=== PATIENT | female | born 1980 | race Caucasian/White ===

== ENCOUNTER 2018-10-20 08:37 | Emergency (ER) | payer OTHER ==
[2018-10-20] MEDS ORDERED: IBUPROFEN 800 MG TABLET PO STA (09:00)
--- NOTE | 2018-10-20 09:02 | ED Physician Documentation ---
PD HPI LOWER EXT INJURY - Stated complaint Stated Complaint: RT ANKLE INJ - Chief complaint Chief Complaint: Ext Problem - History obtained from History obtained from: Patient - History of Present Illness PD HPI LOW EXT INJURY LOCATION: Right, Ankle Type of injury: Twist Where injury occurred: Home Timing - onset: How many hours ago (1) Timing - duration: Hours (1) Timing - details: Abrupt onset Pain level max: 8 Pain level now: 6 Improved by: Rest, Ice, Immobilization Worsened by: Moving, Palpating Associated symptoms: Swelling. 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 surgery), Tubal ligation, Other HEENT: Tonsil/Adenoidectomy - Present Medications Home Medications: Ambulatory Orders Medication Instructions Recorded Confirmed Cholecalciferol (Vitamin D3) 1 tab PO DAILY 05/31/17 10/20/18 [Vitamin D3] Ibuprofen [Motrin] 800 mg PO Q8H PRN #30 tablet 10/20/18 - Allergies Allergies/Adverse Reactions: Allergies Allergy/AdvReac Type Severity Reaction Status Date / Time Penicillins Allergy Rash Verified 10/20/18 08:50 - Social History Does the pt smoke?: Yes Smoking Status: Former smoker Does the pt drink ETOH?: Yes Does the pt have substance abuse?: No - Immunizations Immunizations are current?: Yes - POLST Patient has POLST: No PD ED PE NORMAL - Vitals Vital signs reviewed: Yes - General General: Alert and oriented X 3, No acute distress - Derm Derm: Warm and dry - Extremities Extremities: Other (R ankle - Tender to palpation over the lateral malleolus. Mild swelling. Neurovascularly intact. No tenderness over the remainder of the foot, ankle or lower leg.) - Neuro Neuro: Alert and oriented X 3 - Psych Psych: Normal mood, Normal affect Results - Vitals Vitals: Vital Signs - 24 hr 10/20/18 08:43 Temperature 36.4 C L Heart Rate 93 Respiratory 18 Rate Blood Pressure 143/89 H O2 Saturation 100 Oxygen O2 Source Room air - Rads (name of study) R ankle xray Radiology: Prelim report reviewed, EMP read contemporaneously, See rad report (No acute osseous abnormality of the ankle. A small tibiotalar joint effusion is present. ) PD MEDICAL DECISION MAKING - ED course Complexity details: reviewed results, re-evaluated patient, considered differential, d/w patient ED course: 38-year-old female presents the emergency department with a right ankle sprain. No fractures or dislocation on x-ray. Placed in an Aircast and on crutches. Will follow up with PCP for further care. Patient counseled regarding signs and symptoms for which I believe and urgent re-evaluation would be necessary. Patient with good understanding of and agreement to plan and is comfortable going home at this time This document was made in part using voice recognition software. While efforts are made to proofread this document, sound alike and grammatical errors may occur. Neurovascularly intact Departure - Departure Disposition: 01 Home, Self Care Clinical Impression: Right ankle sprain Qualifiers: Encounter type: initial encounter Involved ligament of ankle: unspecified ligament Qualified Code(s): S93.401A - Sprain of unspecified ligament of right ankle, initial encounter Condition: Good Instructions: ED Sprain Ankle W X Ray Follow-Up: your,doctor in 1week [Other] Prescriptions: Ibuprofen [Motrin] 800 mg PO Q8H PRN #30 tablet PRN Reason: PAIN &/OR FEVER Comments: There are no fractures on your today. Use the crutches as needed to help you walk. This should improve over the next few days. If you are still having pain in 1 week, you should follow-up with your doctor for repeat evaluation Forms: Activity restrictions
--- NOTE | 2018-10-20 09:55 | XRAY Report ---
Reason: injury Procedure Date: 10/20/2018 Accession Number: [id number] / [id number] Procedure: XR - Ankle 3 View RT CPT Code: FULL RESULT: EXAM: RIGHT ANKLE RADIOGRAPHY EXAM DATE: 10/20/2018 09:41 AM. CLINICAL HISTORY: Twisted right ankle today on stairs. Pain anterior and lateral malleolus. COMPARISON: None. TECHNIQUE: 3 views. FINDINGS: Bones: Normal. No fractures or bone lesions. There is a small calcaneal plantar spur. Joints: There is a small tibiotalar joint effusion. No subluxations. The ankle mortise is normally aligned. Soft Tissues: Unremarkable. No focal soft tissue swelling appreciated. IMPRESSION: 1. No acute osseous abnormality of the ankle. 2. A small tibiotalar joint effusion is present. RADIA
[2018-10-20 10:45] VITALS: BP 138/88
== END 2018-10-20 10:44 | disposition home or self-care (01) ==
LOC: ED 08:37
DX: Z87.891 Personal history of nicotine dependence (principal); S93.401A Sprain of unspecified ligament of right ankle, initial encounter; X50.1XXA Overexertion from prolonged static or awkward postures, initial encounter
CPT/HCPCS: 73610; 99283; A9270

== ENCOUNTER 2018-11-09 19:17 | Emergency (ER) | payer OTHER ==
[2018-11-09 19:26] VITALS: BP 151/82
[2018-11-09] MEDS ORDERED: TETANUS/DIPHTHERIA/PERTUSSIS 0.5 ML SYRINGE IM ONE (20:06)
[2018-11-09] MEDS ORDERED: AMOX/CLAV 875 MG/125 MG TABLET PO STA (20:06)
--- NOTE | 2018-11-09 20:10 | ED Physician Documentation ---
PD HPI UPPER EXT INJURY - Stated complaint Stated Complaint: CAT BITE LF RING FINGER - Chief complaint Chief Complaint: Laceration - History obtained from History obtained from: Patient - History of Present Illness Location: Hand Type of injury: Other (The patient was bit by her cat yesterday while attempting to give a B12 injection) Where injury occurred: Home Timing - onset: Yesterday Timing - details: Abrupt onset Severity Comments: moderate Improved by: Nothing Worsened by: Moving Associated symptoms: No: Weakness, Numbness, Tingling, Swelling Contributing factors: Prior ortho surgery Similar symptoms before: Has not had sx before Recently seen: Not recently seen Review of Systems Constitutional: denies: Fever, Chills Eyes: denies: Discharge Cardiac: denies: Chest pain / pressure Respiratory: denies: Dyspnea GI: denies: Abdominal Pain Skin: reports: Bite / sting Musculoskeletal: reports: Extremity pain Neurologic: denies: Generalized weakness Immunocompromised: denies: Chemotherapy PD PAST MEDICAL HISTORY - Past Medical History Past Medical History: No Cardiovascular: None Respiratory: None Neuro: None Endocrine/Autoimmune: None GI: None 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 : None HEENT: None Psych: None Musculoskeletal: None Derm: None - Past Surgical History 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 Surgical 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: LEEP (Cervical surgery), Tubal ligation, Other HEENT: Tonsil/Adenoidectomy - Present Medications Home Medications: Ambulatory Orders Medication Instructions Recorded Confirmed Cholecalciferol (Vitamin D3) 1 tab PO DAILY 05/31/17 10/20/18 [Vitamin D3] Ibuprofen [Motrin] 800 mg PO Q8H PRN #30 tablet 10/20/18 Amox/Clav 875/125 [Augmentin] 1 each PO Q12H #20 tablet 11/09/18 - Allergies Allergies/Adverse Reactions: Allergies Allergy/AdvReac Type Severity Reaction Status Date / Time Penicillins Allergy Rash Verified 10/20/18 08:50 - Social History Does the pt smoke?: No Smoking Status: Never smoker Does the pt drink ETOH?: Yes ETOH Use: Wine Does the pt have substance abuse?: No - Immunizations Immunizations are current?: No Immunizations: TDAP >10years/unknown - POLST Patient has POLST: No PD ED PE NORMAL - General General: Alert and oriented X 3, No acute distress - HEENT HEENT: Atraumatic, PERRL, EOMI, Ears normal - Derm Derm: Other (The patient has 2 bite hurtado on the volar aspect of her finger, there is some surrounding erythematous changes. The patient has no tenderness along the flexor tendon, the digit is only mildly Swollen, the patient has full active range of motion and has no pain on passive range of motion of the digit. There is no active drainage or erythema tracking into the volar palm) - Extremities Extremities: No deformity - Neuro Neuro: Alert and oriented X 3, Normal speech - Psych Psych: Normal affect Results - Vitals Vitals: Vital Signs - 24 hr 11/09/18 19:22 Temperature 36.5 C Heart Rate 69 Respiratory 16 Rate Blood Pressure 151/82 H O2 Saturation 100 Oxygen O2 Source Room air PD MEDICAL DECISION MAKING - ED course ED course: The patient has an acute cat bite to her hand, there is some early signs of infection but currently no evidence of flexor tenosynovitis, the patient appears appropriate for an outpatient course of antibiotics. I discussed with her warning signs for a more serious hand infection and advised that she should return to the emergency department immediately for any worsening or any concerns The patient will otherwise follow-up with primary care The patient was told that she had a reaction to penicillin years ago but has not actually experienced anything that she can remember. According to her it may have been a rash. There is no reports of anaphylaxis. Since this may not have been related to the actual penicillin itself I recommended using Augmentin since the most appropriate antibiotic. The patient understands and agrees to the plan Departure - Departure Disposition: 01 Home, Self Care Clinical Impression: Cat bite of finger Qualifiers: Encounter type: initial encounter Qualified Code(s): S61.259A - Open bite of unspecified finger without damage to nail, initial encounter; W55.01XA - Bitten by cat, initial encounter Condition: Good Instructions: ED Bite Cat Prescriptions: Amox/Clav 875/125 [Augmentin] 1 each PO Q12H #20 tablet Comments: Please follow-up with your primary care physician in 3 days for recheck of your wound Please return to the emergency department immediately for any worsening or any concerns
== END 2018-11-09 21:09 | disposition home or self-care (01) ==
LOC: ED 19:17
DX: S61.255A Open bite of left ring finger without damage to nail, initial encounter (principal); L08.9 Local infection of the skin and subcutaneous tissue, unspecified; W55.01XA Bitten by cat, initial encounter; Y93.K9 Activity, other involving animal care; Y92.009 Unspecified place in unspecified non-institutional (private) residence as the place of occurrence of the external cause; Z23 Encounter for immunization; Z88.0 Allergy status to penicillin
CPT/HCPCS: 90471; 90715; 99281; 99283; A9270

== ENCOUNTER 2020-08-09 08:00 | Emergency (ER) | payer OTHER ==
[2020-08-09 08:06] VITALS: BP 152/87
[2020-08-09] MEDS ORDERED: PROPARACAINE 0.5% OPHTH DROPS 15 ML EACHEYE STA (08:09)
[2020-08-09] MEDS ORDERED: ERYTHROMYCIN OPHTH OINT 1 GM TUBE RIGHTEYE STA (08:21)
--- NOTE | 2020-08-09 08:23 | ED Physician Documentation ---
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 She presents with eye pain that started this morning with light sensitivity drainage and mild blurriness of the right eye only. She does not wear contacts. Review of Systems Constitutional: denies: Fever, Chills Eyes: reports: Decreased vision, Photophobia, Irritation. 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 08/09/20 Ophthalmic Ointment] - Allergies Allergies/Adverse Reactions: Allergies Allergy/AdvReac Type Severity Reaction Status Date / Time Penicillins Allergy Rash Verified 10/20/18 08:50 - Social History Does the pt smoke?: No Smoking Status: Never smoker Does the pt drink ETOH?: Yes Does the pt have substance abuse?: No - Immunizations Immunizations are current?: No Immunizations: TDAP >10years/unknown - POLST Patient has POLST: No PD ED PE NORMAL - Vitals Vital signs reviewed: Yes - General General: Alert and oriented X 3, No acute distress - HEENT HEENT: PERRL, EOMI, Other (Mild conjunctivitis of the right eye, complete resolution of pain after the administration of proparacaine. No cell or flare in the anterior chamber. Bebeto-Pen on the right is 26.) - Neck Neck: Supple, no meningeal sign, No bony TTP - Neuro Neuro: Alert and oriented X 3, Normal speech Results - Vitals Vitals: Vital Signs - 24 hr 08/09/ 08:04 Temperature 36.8 C Heart Rate 72 Respiratory 18 Rate Blood Pressure 152/87 H O2 Saturation 100 Oxygen O2 Source Room air PD MEDICAL DECISION MAKING - ED course ED course: No evidence of uveitis on slit-lamp exam at this juncture, mildly elevated eye pressures but probably not enough to cause acute symptoms. Otherwise seems most consistent with mild conjunctivitis. No pain with light in the contralateral eye. Complete resolution with proparacaine. Departure - Departure Disposition: Home, Self Care Clinical Impression: Conjunctivitis Qualifiers: Conjunctivitis type: acute Acute conjunctivitis type: unspecified Laterality: right Qualified Code(s): H10.31 - Unspecified acute conjunctivitis, right eye Condition: Good Record reviewed to determine appropriate education?: Yes Instructions: ED Conjunctivitis Nonspecific Follow-Up: Lalo Manning MD [Provider Admit Priv/Credential] - Prescriptions: Erythromycin Base [Erythromycin Ophthalmic Ointment] 1 appful OP 5XD 7 Days #1 oint...g. Comments: There is no evidence of uveitis at this juncture, you do have mildly elevated eye pressures with the right being 26. I suspect this is not related to your current symptoms but does necessitate follow-up with an software reverse engineer or tennis net maker for recheck. You can call the software reverse engineer on this form for an appointment, return if worsening.
== END 2020-08-09 08:37 | disposition home or self-care (01) ==
LOC: ED 08:00
DX: H10.31 Unspecified acute conjunctivitis, right eye (principal)
CPT/HCPCS: 99282; 99283; J3490

== ENCOUNTER 2023-10-06 12:28 | Outpatient (CLI) | payer OTHER ==
[2023-10-06 12:54] LABS: BASOPHILS # (AUTO) 0.1 10^3/uL (0.0-0.1); BASOPHILS % (AUTO) 0.7 %; EOSINOPHILS # (AUTO) 0.1 10^3/uL (0.0-0.7); EOSINOPHILS % (AUTO) 0.8 %; HCT - HEMATOCRIT 42.3 % (37.0-47.0); HGB - HEMOGLOBIN 13.6 g/dL (12.0-16.0); LYMPHOCYTES # (AUTO) 2.5 10^3/uL (1.5-3.5); LYMPHOCYTES % (AUTO) 34.6 %; MEAN CORPUSCULAR HEMOGLOBIN 30.2 pg (27.0-31.0); MEAN CORPUSCULAR HGB CONC 32.2 g/dL (32.0-36.0); MEAN CORPUSCULAR VOLUME 93.8 fL (81.0-99.0); MONOCYTES # (AUTO) 0.7 10^3/uL (0.0-1.0); MONOCYTES % (AUTO) 9.7 %; NEUTROPHILS % (AUTO) 54.1 %; PLT - PLATELET COUNT 262 10^3/uL (130-450); RED BLOOD COUNT 4.51 10^6/uL (4.20-5.40); RED CELL DISTRIBUTION WIDTH 13.3 % (12.0-15.0); WHITE BLOOD COUNT 7.3 x10^3/uL (4.8-10.8)
== END 2023-10-06 12:29 | disposition home or self-care (01) ==
LOC: LAB 12:28
PROVIDERS: ATTEND Obstetrics & Gynecology
DX: Z01.812 Encounter for preprocedural laboratory examination (principal); N93.9 Abnormal uterine and vaginal bleeding, unspecified
CPT/HCPCS: 36415; 85025; 86850; 86900; 86901

== ENCOUNTER 2023-10-07 07:27 | Day surgery (SDC) | payer OTHER ==
[~2023-10-07 07:27] MED LIST: ACETAMINOPHEN 1,000 MG/100 ML 1,000 MG/100 ML BAG IV ONE; CELECOXIB 100 MG CAPSULE PO ONE; GABAPENTIN 400 MG CAPSULE ONE; ceFAZolin 2 GM VIAL ONE
[2023-10-07] MEDS ORDERED: LACTATED RINGERS 1,000 ML IV ONE ×2 (07:30→11:37)
[2023-10-07 07:44] LABS: HCG UR QUAL NEGATIVE
[2023-10-07] MEDS ORDERED: PROPOFOL 200 MG/20 ML VIAL IVP ONE (08:11)
[2023-10-07] MEDS ORDERED: fentaNYL 100 MCG/2 ML VIAL ONE ×4 (08:11→11:39)
[2023-10-07] MEDS ORDERED: ROCURONIUM 50 MG/5 ML VIAL ONE (08:11)
[2023-10-07] MEDS ORDERED: MIDAZOLAM 2 MG/2 ML VIAL ONE (08:11)
[2023-10-07] MEDS ORDERED: VASOPRESSIN 20 UNIT/ML VIAL ONE (08:15)
[2023-10-07] MEDS ORDERED: BUPIVACAINE 0.5%-EPI 1:200000 PF 30 ML VIAL ONE (08:15)
[2023-10-07] MEDS ORDERED: ESTROGENS, CONJUGATED CREAM 30 GM TUBE ONE (08:15)
[2023-10-07] MEDS ORDERED: HYDROmorphone 0.5 MG/0.5 ML SYRINGE IVP PRN (08:25)
[2023-10-07] MEDS ORDERED: NALOXONE 0.4 MG/ML VIAL IVP PRN (08:25)
[2023-10-07] MEDS ORDERED: MORPHINE 2 MG/ML CARPUJECT IVP PRN (08:25)
[2023-10-07] MEDS ORDERED: ATROPINE ABBOJECT 1 MG/10 ML SYRINGE IVP PRN (08:25)
[2023-10-07] MEDS ORDERED: ePHEDrine 50 MG/ML VIAL IVP PRN (08:25)
[2023-10-07] MEDS ORDERED: ONDANSETRON 4 MG/2 ML VIAL IVP PRN (08:25)
[2023-10-07] MEDS ORDERED: METOCLOPRAMIDE 10 MG/2 ML VIAL IVP PRN (08:25)
--- NOTE | 2023-10-07 08:25 | ANESTHESIA ---
Pre-Anesthesia VS, & Labs - Diagnosis abnormal uterine bleeding - Procedure hysterectomy Vital Signs: Temp Pulse Resp BP Pulse Ox O2 Flow Rate 36.5 C 61 16 148/101 H 98 10/07/23 07:36 10/07/23 07:36 10/07/23 07:36 10/07/23 07:36 10/07/23 07:36 Height: 5 ft 10 in Weight (kg): 120.6 kg Body Mass Index: 38.1 BMI Classification: Obese - NPO >8 hours - Is Patient ?: No Home Medications and Allergies Home Medications: Ambulatory Orders Metformin HCl [Metformin ER Osmotic] 1,000 mg PO DAILY 10/01/23 Metformin HCl [Metformin ER Osmotic] 1,000 mg PO DAILY 10/01/23 Allergies/Adverse Reactions: Allergies Allergy/AdvReac Type Severity Reaction Status Date / Time Penicillins Allergy Rash Verified 10/20/18 08:50 Anes History & Medical History - Anesthetic History Anesthesia Complications: reports: No previous complications Family history of Anesthesia Complications: Denies Family history of Malignant Hyperthermia: Denies - Medical History Cardiovascular: reports: Hypertension Pulmonary: reports: None Gastrointestinal: reports: None Urinary: reports: None Neuro: reports: None Musculoskeletal: reports: None Endocrine/Autoimmune: reports: None Blood Disorders: reports: None Skin: reports: None Smoking Status: Never smoker - Surgical History Eyes Ears Nose Throat (EENT): reports: Tonsil/Adenoidectomy Gynecologic: reports: Dilation and currettage, Tubal ligation, LEEP (Cervical surgery), Other Exam General: Alert, Oriented x3, Cooperative Dental: WNL Mouth Openin Fingerbreadth Neck Mobility: Normal Mallampati classification: II Thyromental Distance: 4-6 cm Respiratory: Lungs clear Cardiovascular: Regular rate Plan Anesthesia Type: General Consent for Procedure(s) Verified and Reviewed: Yes Code Status: Attempt Resuscitation ASA classification: 2-Mild systemic disease Is this case an emergency?: No
[2023-10-07] MEDS ORDERED: MANNITOL 20% 500 ML ONE (08:32)
[2023-10-07] MEDS ORDERED: METHYLENE BLUE 0.5% 50 MG/10 ML AMPULE ONE (08:32)
[2023-10-07] MEDS ORDERED: LACTATED RINGERS 1,000 ML IV SCH (09:00)
[2023-10-07] MEDS ORDERED: DEXAMETHASONE 4 MG/ML VIAL ONE (09:05)
[2023-10-07] MEDS ORDERED: VASOPRESSIN 20 UNIT/ML VIAL IVP ONE (09:15)
[2023-10-07] MEDS ORDERED: METHYLENE BLUE 0.5% 50 MG/10 ML AMPULE IR ONE (09:16)
[2023-10-07] MEDS ORDERED: HYDROmorphone 1 MG/ML CARPUJECT ONE (09:28)
[2023-10-07] MEDS ORDERED: MANNITOL 20% 500 ML BAG IR ONE ×2 (11:00)
[2023-10-07] MEDS ORDERED: LABETALOL 5 MG/1 ML 20 ML MDV ONE (11:02)
[2023-10-07] MEDS ORDERED: ONDANSETRON 4 MG/2 ML VIAL ONE (11:02)
[2023-10-07] MEDS ORDERED: KETOROLAC 30 MG/ML VIAL ONE (11:13)
[2023-10-07] MEDS ORDERED: NEOSTIGMINE 1 MG/1 ML 10 ML MDV ONE (11:18)
[2023-10-07] MEDS ORDERED: GLYCOPYRROLATE 1 MG/5 ML VIAL ONE (11:18)
[2023-10-07] MEDS ORDERED: SIMETHICONE CHEW 80 MG TABLET PO PRN (11:26)
[2023-10-07] MEDS ORDERED: HYDROmorphone 1 MG/ML CARPUJECT IVP PRN (11:26)
[2023-10-07] MEDS ORDERED: oxyCODONE 5 MG TABLET PO PRN (11:26)
[2023-10-07] MEDS ORDERED: CALCIUM CARBONATE CHEW 500 MG TABLET PO PRN (11:26)
[2023-10-07] MEDS ORDERED: SCOPOLAMINE PATCH TOP PRN (11:26)
[2023-10-07] MEDS ORDERED: ONDANSETRON ODT 4 MG TABLET TL PRN (11:26)
--- NOTE | 2023-10-07 11:26 | OPERATIVE REPORT ---
Operative Report - General Procedure Date: 10/07/23 Planned Procedure: Total vaginal hysterectomy, possible laparoscopic assisted vaginal hysterectomy, cystoscopy Pre-Op Diagnosis: Abnormal uterine bleeding Procedure Performed: Total vaginal hysterectomy, cystoscopy Post Op Diagnosis: Abnormal uterine bleeding - Procedure Note Primary Surgeon: Lux Yan MD Secondary Surgeon: Elizabeth Gibson MD Anesthesia Provider: Jeni Diallo CRNA Anesthesia Technique: General ET tube Pathology: Uterus and cervix IV Fluids (mL): 2,100 Estimated Blood Loss (mL): 710 Urine Output (mL): 450 Findings: Normal-appearing uterus. Cervix with scar, possibly from previous cervical procedure. Normal-appearing ovaries. Complications: None - Other Other Information/Narrative: Prior to the procedure, patient was counseled the risk, benefits, alternatives to this procedure as per H&P. She consented to continue with planned total vaginal hysterectomy, possible laparoscopic assisted hysterectomy, cystoscopy. Patient was taken to the operating room where endotracheal anesthesia was found to be adequate. She was prepped using betadine vaginally and draped in a dorsal lithotomy position using great white stirrups. A time out was performed and prophylactic antibiotics were given prior to incision. The bladder was filled with methylene blue. An exam under anesthesia was performed and was consistent with her preoperative evaluation. A weighted speculum was placed into the vagina and the cervix was grasped with a single-toothed tenaculum. Dilute vasopressin was injected in the cervix the cervix was circumferentially inscribed using bovie cautery. This allowed dissection entry into the posterior cul-de-sac. The weighted speculum was traded for a Minot speculum to better protect the rectum. The uterosacral ligaments were then identified, clamped and suture ligated using 0 vicryl. The cardinal ligaments were then identified, clamped, cut, and suture ligated using 0 vicryl. The anterior cul-de-sac was then entered sharply. A demar retractor was placed to protect the bladder. The uterine vessels were clamped and suture ligated. The utero-ovarian vessels were clamped and doubly ligated using 0 vicryl bilaterally. The uterus was then removed and passed off. The vaginal cuff was closed with a running suture of the right uteralsacral ligament to the right with an 0- vicryl, incorporating both uteralsacral ligaments into the vaginal cuff. The vaginal cuff was then closed in an anterior to posterior direction. The vaginal cuff was hemostatic. A cystoscopy was performed showing good ureteral jets from bilateral ureteral orifices. The patient was then cleaned and drained and legs brought down out of dorsal lithotomy position simultaneously. Sponge, lap, and needle counts were reported correct by the nursing staff following the procedure. I appreciate the assistance of Dr. Gibson during this procedure, and the assistance in retraction, visualization, dissection, and overall assistance during the case were instrumental to the patient's wellbeing.
[2023-10-07] MEDS: fentaNYL 100 MCG/2 ML VIAL IVP PRN ×2 (11:43→12:06)
--- NOTE | 2023-10-07 12:07 | ANESTHESIA POST OP EVALUATION ---
Anesthesia Post Eval - Post Anesthesia Eval Vitals: Last Vital Signs Temp 36.3 C L 10/07/23 11:55 Pulse 50 L 10/07/23 11:55 Resp 12 10/07/23 11:55 BP 132/66 H 10/07/23 11:55 Pulse Ox 100 10/07/23 11:55 O2 Flow Rate CV Function Including HR & BP: Stable Pain Control: Satisfactory Nausea & Vomiting: Negative Mental Status: Baseline Respiratory Status: Airway Patent Hydration Status: Satisfactory Anesthesia Complications: None
[2023-10-07] MEDS: LACTATED RINGERS 1,000 ML IV SCH ×2 (14:15→20:56)
[2023-10-07] MEDS: ACETAMINOPHEN 500 MG TABLET PO SCH (15:32)
[2023-10-07] MEDS: KETOROLAC 30 MG/ML VIAL IVP SCH (18:21)
[2023-10-07] MEDS: DOCUSATE SODIUM 100 MG CAPSULE PO SCH (20:53)
[2023-10-07] MEDS ORDERED: ENOXAPARIN 40 MG/0.4 ML SYRINGE SUBQ SCH (21:00)
[2023-10-08] MEDS: ACETAMINOPHEN 500 MG TABLET PO SCH ×2 (00:21→08:52)
[2023-10-08] MEDS: KETOROLAC 30 MG/ML VIAL IVP SCH ×2 (00:21→06:16)
[2023-10-08] MEDS: LACTATED RINGERS 1,000 ML IV SCH (02:10)
[2023-10-08 05:43] LABS: BASOPHILS % (AUTO) 0.2 %; HCT - HEMATOCRIT 33.5 % (37.0-47.0); HGB - HEMOGLOBIN 10.5 g/dL (12.0-16.0); LYMPHOCYTES # (AUTO) 2.5 10^3/uL (1.5-3.5); LYMPHOCYTES % (AUTO) 22.2 %; MEAN CORPUSCULAR HEMOGLOBIN 29.7 pg (27.0-31.0); MEAN CORPUSCULAR HGB CONC 31.3 g/dL (32.0-36.0); MEAN CORPUSCULAR VOLUME 94.6 fL (81.0-99.0); MEAN PLATELET VOLUME 11.1 fL (7.9-10.8); MONOCYTES % (AUTO) 8.7 %; NEUTROPHILS # (AUTO) 7.6 10^3/uL (1.5-6.6); NEUTROPHILS % (AUTO) 68.6 %; PLT - PLATELET COUNT 215 10^3/uL (130-450); RED BLOOD COUNT 3.54 10^6/uL (4.20-5.40); RED CELL DISTRIBUTION WIDTH 13.6 % (12.0-15.0); WHITE BLOOD COUNT 11.1 x10^3/uL (4.8-10.8)
[2023-10-08 07:54] VITALS: BP 119/66; O2SAT 96
--- NOTE | 2023-10-08 08:26 | DISCHARGE SUMMARY ---
Discharge Summary Admit Date: 10/07/23 Discharge Date: 10/08/23 Discharging Provider: Lux Yan MD Code Status: Attempt Resuscitation Condition at Discharge: Stable Discharge Disposition: 01 Home, Self Care - DIAGNOSES Admission Diagnoses: Abnormal uterine bleeding Discharge Diagnoses with Status of Each Condition: Abnormal uterine bleeding Status post total vaginal hysterectomy, cystoscopy - [facility] History of Present Illness: Pain is well controlled. Ambulating without difficulty. No calf pain or tende rness. No shortness of breath or chest pain. Voiding without difficulty. Overnight events: No acute events overnight Physical exam: Constitutional: alert, oriented, no acute distress Cardiovascular: Regular rate and rhythm. No murmurs, rubs, gallops. Respiratory: No respiratory distress. Clear to auscultation bilaterally. Abdomen: Incision clean, dry, intact. Appropriate tenderness postoperative. Extremities: No swelling or tenderness. No cords. Distal pulses intact. Psych: affect and mood appropriate, normal interaction, good eye contact. - HOSPITAL COURSE Hospital Course: Patient was admitted for planned total vaginal hysterectomy and cystoscopy. She underwent an uncomplicated surgery was kept overnight when the Mata was removed. She was able to void spontaneously without issue. She was discharged on postoperative day 1. - ALLERGIES Allergies/Adverse Reactions: Allergies Allergy/AdvReac Type Severity Reaction Status Date / Time Penicillins Allergy Rash Verified 10/20/18 08:50 - MEDICATIONS Home Medications: Ambulatory Orders Medication Instructions Recorded Confirmed Metformin HCl [Metformin ER 1,000 mg PO DAILY 10/01/23 10/07/23 Osmotic] - LABS Result Diagrams: 10/08/23 05:37 - FOLLOW UP Follow Up: With Lux Yan MD at [facility] in 1 to 2 weeks. - TIME SPENT Time Spent in Discharge (Minutes): 20
[2023-10-08] MEDS: DOCUSATE SODIUM 100 MG CAPSULE PO SCH (09:07)
[2023-10-08] MEDS ORDERED: IBUPROFEN 600 MG TABLET PO SCH (18:00)
== END 2023-10-08 11:22 | disposition home or self-care (01) ==
LOC: SDS 07:27 → FBP 10:49 → SDS 10-08 11:22
PROVIDERS: ATTEND Obstetrics & Gynecology
PROC: 0UT97ZZ Resection of Uterus, Via Natural or Artificial Opening (ICD-10-PCS; principal; 2023-10-07 08:30)
DX: N93.9 Abnormal uterine and vaginal bleeding, unspecified (principal); E66.9 Obesity, unspecified; Z68.38 Body mass index [BMI] 38.0-38.9, adult; I10 Essential (primary) hypertension; Z87.891 Personal history of nicotine dependence
CPT/HCPCS: 36415; 58260; 81025; 85025; A9270; J0131; J1170; J1650; J3490; J7120; Q0162

== ENCOUNTER 2023-11-11 11:44 | Outpatient (CLI) | payer OTHER ==
[2023-11-11 11:57] LABS: BILIRUBIN,URINE NEGATIVE (NEGATIVE); GLUCOSE, URINE (UA) NEGATIVE (NEGATIVE); KETONES,URINE (UA) NEGATIVE (NEGATIVE); LEUKOCYTE ESTERASE, URINE TRACE (NEGATIVE); NITRITE,URINE NEGATIVE (NEGATIVE); OCCULT BLOOD,URINE NEGATIVE (NEGATIVE); PROTEIN,URINE NEGATIVE (NEGATIVE); UROBILINOGEN,URINE 0.2 (NORMAL) E.U./dL (NORMAL)
[2023-11-11 11:59] LABS: BASOPHILS # (AUTO) 0.1 10^3/uL (0.0-0.1); BASOPHILS % (AUTO) 0.7 %; EOSINOPHILS # (AUTO) 0.1 10^3/uL (0.0-0.7); EOSINOPHILS % (AUTO) 0.8 %; HCT - HEMATOCRIT 41.6 % (37.0-47.0); LYMPHOCYTES # (AUTO) 2.1 10^3/uL (1.5-3.5); LYMPHOCYTES % (AUTO) 28.6 %; MEAN CORPUSCULAR HEMOGLOBIN 29.1 pg (27.0-31.0); MEAN CORPUSCULAR HGB CONC 31.3 g/dL (32.0-36.0); MEAN CORPUSCULAR VOLUME 93.3 fL (81.0-99.0); MEAN PLATELET VOLUME 10.9 fL (7.9-10.8); MONOCYTES # (AUTO) 0.6 10^3/uL (0.0-1.0); MONOCYTES % (AUTO) 8.6 %; NEUTROPHILS # (AUTO) 4.5 10^3/uL (1.5-6.6); NEUTROPHILS % (AUTO) 61.2 %; PLT - PLATELET COUNT 270 10^3/uL (130-450); RED BLOOD COUNT 4.46 10^6/uL (4.20-5.40); RED CELL DISTRIBUTION WIDTH 13.4 % (12.0-15.0); WHITE BLOOD COUNT 7.4 x10^3/uL (4.8-10.8)
[2023-11-11 12:13] LABS: BACTERIA,URINE Rare /HPF (None Seen); CLARITY,URINE CLEAR (CLEAR); RBC,URINE None Seen /HPF (0-5); SQUAMOUS EPITHELIAL CELL,UR FEW Squamous (<= Few); WBC,URINE 0-3 /HPF (0-5)
== END 2023-11-11 11:45 | disposition home or self-care (01) ==
LOC: LAB 11:44
PROVIDERS: ATTEND Obstetrics & Gynecology
DX: G89.18 Other acute postprocedural pain (principal)
CPT/HCPCS: 36415; 81001; 85025; 87086

== ENCOUNTER 2024-01-04 18:12 | Emergency (ER) | payer OTHER ==
[2024-01-04 18:34] VITALS: BP 146/73; O2SAT 100
--- NOTE | 2024-01-04 18:44 | ED Physician Documentation ---
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 She states she was grooming a cat today when it bit her on the right arm. Multiple bites. Tetanus up-to-date. Nothing makes it better or worse. Review of Systems Constitutional: denies: Fever, Chills Skin: denies: Rash Musculoskeletal: denies: Neck pain, Back pain Neurologic: denies: Headache PD PAST MEDICAL HISTORY - Past Medical History Cardiovascular: Hypertension Respiratory: None Neuro: None Endocrine/Autoimmune: None GI: None PHYSICIAN COMPENSATION ANALYST: None : None HEENT: None Psych: Depression, Anxiety Musculoskeletal: None Derm: None - Past Surgical History Past Surgical History: Yes /PHYSICIAN COMPENSATION ANALYST: Dilation and currettage, Tubal ligation, LEEP (Cervical surgery), Other HEENT: Tonsil/Adenoidectomy - Present Medications Home Medications: Ambulatory Orders Medication Instructions Recorded Confirmed clindamycin HCL [Cleocin HCl] 300 mg PO Q6H #40 cap 01/04/24 - Allergies Allergies/Adverse Reactions: Allergies Allergy/AdvReac Type Severity Reaction Status Date / Time Penicillins Allergy Rash Verified 01/04/24 18:35 - Social History Does the pt smoke?: No Smoking Status: Never smoker Does the pt drink ETOH?: Yes Does the pt have substance abuse?: No - Immunizations Immunizations are current?: No Immunizations: TDAP >10years/unknown - POLST Patient has POLST: No PD ED PE NORMAL - Vitals Vital signs reviewed: Yes - General General: Alert and oriented X 3, No acute distress - HEENT HEENT: Moist mucous membranes - Derm Derm: Warm and dry - Extremities Extremities: Other (R arm - There are several puncture wounds to the right forearm near the antecubital fossa. No active bleeding. Neurovascularly intact.) - Neuro Neuro: Alert and oriented X 3 - Psych Psych: Normal mood, Normal affect Results - Vitals Vitals: Vital Signs - 24 hr 01/04/24 18:25 Temperature 36.0 C L Heart Rate 65 Respiratory 18 Rate Blood Pressure 146/73 H O2 Saturation 100 Oxygen O2 Source Room air PD Medical Decision Making - ED course Complexity details: considered differential, d/w patient ED course: 43-year-old female presents with a cat bite to the right arm. Several puncture wounds. Has had infected cat bites in the past. 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 Allergic to penicillin. Will place on clindamycin. Wound care instructions given at bedside. Tetanus is up-to-date. Wounds were cleansed and bandaged. Patient counseled regarding signs and symptoms for which I believe and urgent re-evaluation would be necessary. Patient with good understanding of and agreement to plan and is comfortable going home at this time This document was made in part using voice recognition software. While efforts are made to proofread this document, sound alike and grammatical errors may occur. Departure - Departure Disposition: 01 Home, Self Care Clinical Impression: Cat bite Qualifiers: Encounter type: initial encounter Qualified Code(s): W55.01XA - Bitten by cat, initial encounter Condition: Good Instructions: ED Bite Cat Follow-Up: JERRY ORTEZ PA-C [Primary Care Provider] - Within 1 week Prescriptions: clindamycin HCL [Cleocin HCl] 300 mg PO Q6H #40 cap Comments: Please take all antibiotics until gone. Please return if you worsen. Keep the wounds clean. Return for redness, swelling or drainage from the wound. Your prescription was sent to [facility] in [place]. Forms: PCP List Discharge Date/Time: 01/04/24 19:01
[2024-01-04] MEDS: CLINDAMYCIN 150 MG CAPSULE PO STA (18:50)
--- NOTE | 2024-01-06 00:05 | ED Physician Documentation ---
ED Addendum - Addendum Addendum: 01/06/24 00:04 Patient called and is having some itching with each dose of clindamycin that she has taken. She is allergic to penicillin but believes she has taken Keflex as a child. I have E scribed some Keflex to the [facility] in [place] and I have recommended the patient take some Benadryl and discontinue the clindamycin.
== END 2024-01-04 19:01 | disposition home or self-care (01) ==
LOC: ED 18:12
DX: S41.151A Open bite of right upper arm, initial encounter (principal); W55.01XA Bitten by cat, initial encounter; Y99.0 Civilian activity done for income or pay
CPT/HCPCS: 1040M; 99282; 99283; A9270

== ENCOUNTER 2024-01-24 13:28 | Outpatient (CLI) | payer OTHER ==
--- NOTE | 2024-01-25 17:19 | Ultrasound Report ---
PROCEDURE: Pelvic w/Transvaginal INDICATIONS: RLQ ABD PAIN TECHNIQUE: Real-time scanning was performed of the pelvic organs, with image documentation. Additional endovagi nal scanning was necessary due to incomplete visualization of the adnexal and endometrial structures by transabdominal scanning. COMPARISON: CT abdomen pelvis -, ultrasound pelvis 07/01/2023 FINDINGS: Uterus: Hysterectomy. Ovaries: Not visualized. Adnexal regions are unremarkable. Other: No pathologic free abdominal or pelvic fluid. IMPRESSION: Nonvisualization of the ovaries or uterus. Adnexal regions are unremarkable. Reviewed by: Muriel Lee MD on 01/25/2024 5:18 PM PDT Approved by: Muriel Lee MD on 01/25/2024 5:18 PM PDT Station ID: [id number]
== END 2024-01-24 13:29 | disposition home or self-care (01) ==
LOC: DI 13:28
PROVIDERS: ATTEND Obstetrics & Gynecology
DX: R10.31 Right lower quadrant pain (principal)